=== PATIENT | female | born 1955 | race African-American/Black ===

== ENCOUNTER 2019-08-27 13:33 | Inpatient (IN) ==
[2019-08-27] MEDS ORDERED: NS 1,000 ML ONE (14:07)
[2019-08-27] MEDS ORDERED: VANCOMYCIN 1 GM/NS 1 GM/250 ML IVPB IV ONE (14:15)
[2019-08-27] MEDS ORDERED: NS 500 ML IV ONE (14:15)
[2019-08-27] MEDS ORDERED: NS 1,000 ML IV ONE ×3 (14:15→21:33)
[2019-08-27] MEDS ORDERED: ATROPINE SYRINGE ONE (14:24)
[2019-08-27] MEDS ORDERED: ATROPINE IV ONE (14:26)
[2019-08-27] MEDS ORDERED: ZOSYN 3.375 GM in NS 50 ML IV SCH (14:33)
[2019-08-27 14:42] LABS: INR 2.09; PTT 43.3 Seconds (22.3-41.8)
[2019-08-27 14:43] LABS: BASO# 0.11 X1000 (0.0-0.2); BASO% 0.5 % (0.0-0.8); EOS# 0.07 X1000 (0.0-0.7); EOS% 0.3 % (0.0-10.0); HEMATOCRIT 30.4 % (37.0-47.0); HEMOGLOBIN 8.2 g/dL (12.0-16.0); IMM GRAN# 1.99 X1000 (0.0-0.04); IMM GRAN% 8.6 % (0.0-0.5); LYMPH# 5.21 X1000 (1.2-3.4); LYMPH% 22.6 % (20.5-51.1); MCH 28.3 PG (27-31); MCV 104.8 FL (81-99); MONO# 2.62 X1000 (0.11-0.59); MONO% 11.4 % (1.7-9.3); MPV 11.3 FL (7.4-10.4); NEUT# 13.02 X1000 (1.4-6.5); NEUT% 56.6 % (42.2-75.2); PLT 475 X1000 (130-400); RDW 14.1 % (11.5-14.5); WBC 23.02 X1000 (4.8-10.8)
[2019-08-27] MEDS: LEVOPHED 8 MG in D5 1/2 NS 250 ML IV SCH ×2 (14:44→19:58)
[2019-08-27] MEDS ORDERED: ATROPINE SYRINGE IV ONE ×2 (14:45→19:00)
[2019-08-27 14:59] LABS: URINE SOURCE CATH
[2019-08-27] MEDS ORDERED: SODIUM BICARBONATE 8.4% IV PUSH ONE (15:02)
[2019-08-27] MEDS ORDERED: KAYEXALATE PR ONE (15:02)
[2019-08-27] MEDS ORDERED: D50W SYRINGE IV ONE (15:04)
[2019-08-27 15:05] LABS: AGAP 34; ALB/GLOB RATIO 1.3; ALBUMIN 3.7 g/dL (3.5-5.0); ALKALINE PHOSPHATASE 69 U/L (32-104); BUN 77 mg/dL (8-22); CALCIUM 10.4 mg/dL (8.8-10.2); CHLORIDE 101 mmol/L (98-107); CK PROFILE 62 U/L (24-173); COSMO 302; CREATININE 5.1 mg/dL (0.5-0.9); ESTIMATED GFR 10; GLUCOSE 199 mg/dL (70-104); GOT 17 U/L (10-30); GPT 10 U/L (10-36); POTASSIUM 7.6 mmol/L (3.5-5.1); SODIUM 137 mmol/L (136-145); TCO2 2 mmol/L (25-35); TOTAL BILIRUBIN < 0.15 mg/dL (0.20-1.00); TOTAL PROTEIN 6.5 g/dL (6.3-8.3)
[2019-08-27] MEDS ORDERED: HUMULIN R IV ONE (15:06)
[2019-08-27 15:19] LABS: BILIRUBIN URINE NEGATIVE (NEGATIVE); BLOOD URINE SMALL (NEGATIVE); COLOR RED; GLUCOSE URINE 100 mg/dL (NEGATIVE); KETONE URINE TRACE mg/dL (NEGATIVE); LEUKOCYTES URINE MODERATE (NEGATIVE); NITRITE URINE POSITIVE (NEGATIVE); PH URINE 5.5; PROTEIN URINE 30 mg/dL (NEGATIVE); SP GRAVITY URINE 1.033; TURBIDITY URINE TURBID (CLEAR); UROBILINOGEN URINE NORMAL (NORMAL)
[2019-08-27 15:28] LABS: UR EPITHELIAL CELLS >10 /HPF (<10); URINE BACTERIA NEGATIVE /HPF; URINE RBC TNTC /HPF (<10); URINE WBC TNTC /HPF (<10)
[2019-08-27] MEDS ORDERED: SODIUM BICARBONATE 8.4% 150 MEQ in STERILE WATER INJ. 1,000 ML IV SCH (15:30)
--- NOTE | 2019-08-27 15:37 | Diag Imaging Result Doc PS360 ---
EXAM: CHEST-1 VIEW HISTORY: AMS TECHNIQUE: Single view COMPARISON: None. FINDINGS: The lungs are well expanded. The heart is not enlarged. The vessels are not distended. There are basilar infiltrates. No effusion identified. IMPRESSION: Basilar infiltrates Electronically signed by Dhruv Butler 08/27/2019 3:34 PM
[2019-08-27 15:40] LABS: URINE CASTS NONE SEEN; URINE CRYSTALS NONE SEEN; URINE SMALL ROUND CELLS TRANS PRESENT; URINE YEAST NONE SEEN
[2019-08-27] MEDS ORDERED: DOPAMINE 400 MG/D5W 400 MG/500 ML IV.SOLN IV SCH (16:15)
--- NOTE | 2019-08-27 16:33 | Diag Imaging Result Doc PS360 ---
EXAM: CT HEAD W/O CONTRAST HISTORY: AMS TECHNIQUE: CT head without contrast COMPARISON: None. FINDINGS: No parenchymal hemorrhage. No epidural or subdural hematoma. No subarachnoid hemorrhage. Mild atrophy. Chronic microvascular ischemic changes. No mass identified on this noncontrasted exam. No hydrocephalus. No sinus opacification. IMPRESSION: 1.No hemorrhage 2.Mild atrophy 3.Chronic microvascular ischemic changes This exam was performed using automated exposure control, adjustment of mA or kV according to patient size, and/or use of iterative reconstruction technique. Electronically signed by Dhruv Butler 08/27/2019 4:31 PM
--- NOTE | 2019-08-27 17:05 | PROVIDER DOCUMENTATION ---
HPI-Fever - General Chief Complaint: Altered Mental Status Stated Complaint: EMS/LETHARGIC Time Seen by Provider: 08/27/19 13:57 Source: EMS notes reviewed Allergies/Adverse Reactions: Patient Allergies Allergy/AdvReac Type Severity Reaction Status Date / Time latex Allergy Unknown Verified 08/27/19 14:33 Sulfa (Sulfonamide Allergy Unknown Verified 08/27/19 14:33 Antibiotics) Home Medications: Home Medication List Medication Instructions Recorded Confirmed Last Taken Type Amlodipine Besylate [Norvasc] 10 mg PO DAILY 08/27/19 08/27/19 08/26/19 09:00 History 10 mg Clopidogrel Bisulfate [Clopidogrel] 75 mg PO DAILY 08/27/19 08/27/19 08/26/19 09:00 History 75 mg Hydralazine HCl 100 mg PO Q8HR 08/27/19 08/27/19 08/27/19 06:00 History 100 mg Insulin Detemir [Levemir] 10 unit SQ QAM 08/27/19 08/27/19 08/27/19 06:00 Histor y 10 units Metformin HCl 1,000 mg PO BID 08/27/19 08/27/19 08/26/19 21:00 History 1000 mg Metoprolol Tartrate 50 mg PO BID 08/27/19 08/27/19 08/26/19 21:00 History 50 mg Multivitamin [Multi-Vitamin Daily] 1 tab PO DAILY 08/27/19 08/27/19 08/26/19 09:00 History 1 tab Pantoprazole Sodium [Protonix] 40 mg PO QHS 08/27/19 08/27/19 08/26/19 21:00 History 40 mg Pravastatin Sodium 40 mg PO DAILY 08/27/19 08/27/19 08/26/19 09:00 History 40 mg - History of Present Illness-Fever Nature of Presenting Problem: Patient is a known diabetic, brought from [facility] by EMS for lethargy with altered mental status. Duration unknown. She was given D50 and IVF 500mls enroute to ED where she continued to be minimally responsive and information could not be obtained from her. Information obrtained from EMS Onset/Duration: reports: unsure Timing: reports: still present Context: reports: decreased mental status Recent Illness?: reports: other (unknown) Modifying Factors: improves with: nothing Associated Symptoms: reports: fatigue, other (hypotension) - Glascow Coma Score Best Eye Response (Bonner): (2) open to pain Best Verbal Response (Bonner): (1) no verbal response Best Motor Response (Candace): (6) obeys commands Review of Systems - Adult - REVIEW OF SYSTEMS - ADULT ROS:: unobtainable per condition Constitutional: reports: see HPI Past History - Adult - PAST MEDICAL HISTORY-ADULT Review of Records: reports: Nursing Assessment Review, Medications Reviewed, Social history reviewed & non-contributory. Cardiovascular: reports: cardiac disease, HTN Respiratory: reports: denies history Gastrointestinal: reports: denies history Diabetes Type: Type 2 - FAMILY HISTORY Family History: other (unable to obatin due to pt condition) - SOCIAL HISTORY Smoking: other (unable to obain) Physical Exam-General - CONSTITUTIONAL General Appearance: appears well, obtunded - EYES Eyes: PERRL/EOMI - HEAD, EARS, NOSE, MOUTH & THROAT HENMT: normocephalic/atraumatic - NECK Neck: other (no thyroid enlargement) - RESPIRATORY Respiratory: chest non-tender, normal breath sounds - CARDIOVASCULAR Cardiovascular: bradycardia - GASTROINTESTINAL (ABDOMEN) Abdominal Exam: soft, no organomegaly - MUSCULOSKELETAL Back Exam: other (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) - SKIN Integumentary: other (cold , clammy extremities) - NEUROLOGIC Neurologic: other (u) - PSYCHIATRIC Psych/Mental Status: other (depressed level of consciousness) Progress - PLAN OF CARE/RESULTS Progress/Plan/Lab Results: Orders Category Date Time Status Admit - [facility] Routine AdmDCTranf 08/27/19 19:22 Active Activity - Strict Bedrest ORDERED Care 08/27/19 19:22 Active Cardiac Monitoring DIRECTED Care 08/27/19 14:14 Active FSBS/Accucheck Result Q4H Care 08/27/19 19:19 Active Payne Cath Insertion ORDERED Care 08/27/19 14:15 Active IV Insertion ORDERED Care 08/27/19 14:14 Completed Intake and Output-Strict ORDERED Care 08/27/19 19:22 Active Notify MD of + Sepsis Screen NOW Care 08/27/19 14:14 Active Notify MD/PA/SUE for exam NOW Care 08/27/19 14:15 Active Notify Physician As Ordered Care 08/27/19 14:14 Active Nursing- MD Consult Request ROUTINE Care 08/27/19 18:03 Active Repeat Vital Signs .Blood Pressure Care 08/27/19 14:15 Completed Repeat Vital Signs .Heart Rate Care 08/27/19 14:15 Active Repeat Vital Signs .Oxygen Saturation Care 08/27/19 14:15 Active Repeat Vital Signs .Respiratory Rate Care 08/27/19 14:15 Active Repeat Vital Signs .Temp Care 08/27/19 14:15 Active Restraint Initiate NonViolent ONCE Care 08/27/19 15:33 Active Vital Signs Order Q1H Care 08/27/19 19:22 Active Z-Document. for Tele Applied ORDERED Care 08/27/19 19:23 Active Physician/Provider Consults Routine Cons 08/27/19 18:03 Ordered NPO Diet 08/27/19 19:23 Completed CHEST-1 VIEW [RAD] Stat Exams 08/27/19 14:[address] HEAD W/O CONTRAST [CT] Stat Exams 08/27/19 15:[address] THORAX/ABD/PELVIS W/O CON [CT] Stat Exams 08/27/19 18:05 Completed ABG [RESP] Routine Lab 08/27/19 18:52 Completed BLOOD CULTURE [BLDCUL] Stat Lab 08/27/19 14:15 Results CBC WITH DIFF [HEME] Stat Lab 08/27/19 14:07 Completed CK PROFILE [SP CHEM] Stat Lab 08/27/19 14:07 Completed CMP [COMPREHENSIVE METABOLIC PANEL] [CHEM] Stat Lab 08/27/19 17:47 Completed COMPREHENSIVE METABOLIC PANEL [CHEM] Stat Lab 08/27/19 14:07 Completed HEMATOCRIT [HEME] Stat Lab 08/27/19 17:47 Completed HEMOGLOBIN [HEME] Stat Lab 08/27/19 17:47 Completed LACTATE, PLASMA [CHEM] Lab 08/27/19 17:47 Completed LACTATE, PLASMA [CHEM] Lab 08/27/19 21:05 Completed LACTATE, PLASMA [CHEM] Q3H Lab 08/27/19 14:15 Completed PROTIME WITH INR [COAG] Stat Lab 08/27/19 14:07 Completed PTT [COAG] Stat Lab 08/27/19 14:07 Completed RETIC COUNT [HEME] Q4H Lab 08/27/19 21:05 Completed TROPONIN T Stat Lab 08/27/19 14:07 Completed URINALYSIS W/POSS RFLX CULT [URINALYSIS] Stat Lab 08/27/19 14:50 Completed URINE CULTURE [RM] Routine Lab 08/27/19 15:41 Results URINE MANUAL MICROSCOPIC [URINALYSIS] Stat Lab 08/27/19 14:50 Completed 0.9% Sodium Chloride Inj [Ns] 1,000 ml Med 08/27/19 14:07 Discontinued .ROUTE As directed 0.9% Sodium Chloride Inj [Ns] 1,000 ml Med 08/27/19 15:40 Discontinued IV 999 mls/hr 0.9% Sodium Chloride Inj [Ns] 1,000 ml Med 08/27/19 14:15 Discontinued IV As Directed mls/hr 0.9% Sodium Chloride Inj [Ns] 500 ml Med 08/27/19 14:15 Discontinued IV 999 mls/hr Albuterol 0.5% INH Conc [Albuterol 0.5% INH Conc For Med 08/27/19 18:04 Discontinued Hyperkalemia] 25 mg INH NOW ONE Atropine Med 08/27/19 14:26 Discontinued 1 mg IV NOW ONE Atropine Syringe Med 08/27/19 14:24 Discontinued 1 mg .ROUTE .STK-MED ONE Atropine Syringe Med 08/27/19 14:45 Discontinued 1 mg IV NOW ONE Calcium Gluconate 2 gm Med 08/27/19 18:22 Discontinued 0.9% Sodium Chloride Inj [Ns] 100 ml IV NOW CefEPIME [Maxipime] 1 gm Med 08/27/19 19:30 Discontinued 0.9% Sodium Chloride Inj [Ns] 50 ml IV Q12H Dextrose 5%-0.45% NaCl Inj [D5 1/2 Ns] 250 ml Med 08/27/19 14:15 Discontinued Norepinephrine [Levophed] 8 mg IV As Directed mls/hr Dextrose 50% Syringe [D50w Syringe] Med 08/27/19 15:04 Discontinued 50 ml IV NOW ONE Dopamine 400 mg/D5w Med 08/27/19 16:15 Discontinued 400 mg in 500 ml IV As Directed mls/hr Insulin Human Regular [Humulin R] Med 08/27/19 15:06 Discontinued 10 unit IV NOW ONE Insulin Lispro [Humalog] Med 08/27/19 21:00 Discontinued See Protocol SUBQ 0700,1100,1600,2100 Misc. Pharmacy Communication Med 08/27/19 19:30 Discontinued 1 each .SEE ORDER DIRECTED Pharmacy Order [Vancomycin IV Per Pharmacy] Med 08/27/19 19:30 Discontinued 1 each MISC DIRECTED Piperacillin/Tazobactam [Zosyn] 3.375 gm Med 08/27/19 14:33 Discontinued 0.9% Sodium Chloride Inj [Ns] 50 ml IV Q6H Sodium Bicarbonate 8.4% Med 08/27/19 15:02 Discontinued 50 meq IV PUSH NOW ONE Sodium Polystyrene [Kayexalate] Med 08/27/19 15:02 Discontinued 30 gm KS NOW ONE Vancomycin 1 gm/Ns Med 08/27/19 14:15 Discontinued 1 gm in 250 ml IV NOW Water, Sterile Inj [Sterile Water Inj] 1,000 ml Med 08/27/19 15:30 Discontinued Sodium Bicarbonate 8.4% 150 meq IV 200 mls/hr Aerosol Treatments Routine Oth 08/27/19 18:04 Completed Aerosol Treatments Stat Oth 08/27/19 18:04 Completed Oxygen Device Stat Oth 08/27/19 14:14 Completed Telemetry [OM.EQ] Routine Oth 08/27/19 19:22 Active EKG [EKG] Stat Ther 08/27/19 15:01 Draft Transfer/Admit Order [TRANSFER] Routine Transfer 08/27/19 19:28 Completed Result Diagrams: 08/27/19 17:47 08/27/19 17:47 - REASSESSMENT Reassessment #1 Time Reassessed: 14:30 Status: unchanged (Patient remains minimally responsive , hypothermic, bradycardic and hypotensive inspite of fluid ressucitation) Reassessment #2 Time Reassessed: 15:00 Status: improving (Patient groaning with eyes open, BP and pulse have responded minimally to pressors) Reassessment #3 Time Reassessed: 17:00 Status: unchanged (Patient on epi and dopamin drip, slight improvement in BP and pulse and has remained hypothermic inspite of the use of warm normal saline solution and litzy hugger. Her mental status has remained the same) - XRAY 1 XRAY Study: Chest ( EXAM: CHEST-1 VIEW HISTORY: AMS TECHNIQUE: Single view COMPARISON: None. FINDINGS: The lungs are well expanded. The heart is not enlarged. The vessels are not distended. There are basilar infiltrates. No effusion identified. IMPRESSION: Basilar infiltrates Electronically signed by Dhruv Butler 08/27/2019 3:34 PM) - CT/MRI 1 CT Study: Head ( EXAM: CT HEAD W/O CONTRAST HISTORY: AMS TECHNIQUE: CT he ad without contrast COMPARISON: None. FINDINGS: No parenchymal hemorrhage. No epidural or subdural hematoma. No subarachnoid hemorrhage. Mild atrophy. Chronic microvascular ischemic changes. No mass identified on this noncontrasted exam. No hydrocephalus. No sinus opacification. IMPRESSION: 1.No hemorrhage 2.Mild atrophy 3.Chronic microvascular ischemic changes This exam was performed using automated exposure control, adjustment of mA or kV according to patient size, and/or use of iterative reconstruction technique. Electronically signed by Dhruv Butler 08/27/2019 4:31 PM) - CONSULTS/PCP/HOSPITALIST Notification #1 *Consult/PCP/Hospitalist*: JN Sofia Time Discussed: 17:51 Consult Disposition: Admit (Paged hospitalist 2x. Per Dr Stratton, JN Sofia accepts admission for Hospitalist) Procedures - CENTRAL LINE Consent Form Signed?: Yes Time-Out Verification Completed?: Yes Central Line Lumen: triple Central Line Procedure Prep: Betadine Patient Position (To prevent Air Embolism): Trendelenburg (SC/IJ) Central Line Position: internal jugular (L) Ultrasound Guided?: Yes Hat, mask, sterile gown, & sterile gloves worn by physician?: Yes Site scrubbed vigorously for 30 seconds? (Groin: 2 min): Yes Anesthetic: 1%, Lidocaine/Xylocaine Post Procedure: Sutured in place Complications: none Procedure Comment: performed by DR Robertson. Supervised by Dr Basurto Departure - Departure Date of Disposition Decision: 08/27/19 Time of Disposition Decision: 17:52 DIAGNOSIS: Sepsis associated hypotension, Hyperkalemia AMS (altered mental status) Qualifiers: Altered mental status type: unspecified Qualified Code(s): R41.82 - Altered men dougie status, unspecified Pneumonia Qualifiers: Pneumonia type: due to unspecified organism Laterality: bilateral Lung location: lower lobe of lung Qualified Code(s): J18.1 - Lobar pneumonia, unspecified organism UTI (urinary tract infection) Qualifiers: Urinary tract infection type: site unspecified Hematuria presence: without hematuria Qualified Code(s): N39.0 - Urinary tract infection, site not specified Disposition: ADMITTED INPATIENT 09 Certified Medical Emergency: Emergent Condition: Fair - Critical Care Note This patient required my direct & personal management of CC.: Yes Total Time (mins): 50 Critical Care Statement: This patient required my direct personal management to treat or rule out processes, the absence of which, could potentiallly result in sudden, clinically significant life or limb threatening deterioration. Attestation - Physician/ TERESE Attestation Patient care was provided by Advanced Practice Provider:: No The physician spent face to face time with patient:: Yes Advanced Practice Provider documentation review:: Supervising physician onsite and consulted in the evaluation and care of this patient. The physician did have a face to face encounter with the patient.
--- NOTE | 2019-08-27 17:43 | SEPSIS: TISSUE PERFUSION ASSMT ---
Sepsis: Tissue Perfusion [facility] - Physical Exam Assessment Date: 08/27/19 Time Assessment Initialized: 17:38 Vital Signs: Last Vital Signs Temp 89.0 F L 08/27/19 14:17 Pulse 52 L 08/27/19 16:55 Resp 19 08/27/19 16:55 BP 90/42 08/27/19 16:55 Pulse Ox 82 L 08/27/19 16:35 Height 5 ft 5 in Weight 85 lb 08/27/19 17:40 BP 1150 MAP 51 RR 23 Temp. 87.3 Oxygen sat: 100% RA Lung Sounds:: lungs clear Heart Sounds:: Regular Capillary Refill Time: Greater Than 2 Seconds Peripheral Pulse Evaluation:: radial (R): 1+, radial (L): 1+, dorsalis-pedis (R): 1+, dorsalis-pedis (L): 1+ Skin Exam:: other (markedly decreased, cold, clammy) - Impression Impression:: Tissue Perfusion Inadequate - Plan Plan:: See Orders (Patient will be admitted)
[2019-08-27] MEDS ORDERED: ALBUTEROL 0.5% INH CONC FOR HYPERKALEMIA INH ONE (18:04)
[2019-08-27 18:07] LABS: HEMATOCRIT 28.9 % (37.0-47.0); HEMOGLOBIN 7.9 g/dL (12.0-16.0)
[2019-08-27] MEDS ORDERED: CALCIUM GLUCONATE 2 GM in NS 100 ML IV ONE (18:22)
[2019-08-27 18:23] LABS: AGAP 33; ALB/GLOB RATIO 1.2; ALKALINE PHOSPHATASE 62 U/L (32-104); BUN 68 mg/dL (8-22); CALCIUM 8.3 mg/dL (8.8-10.2); CHLORIDE 106 mmol/L (98-107); COSMO 313; CREATININE 4.7 mg/dL (0.5-0.9); ESTIMATED GFR 11; GLUCOSE 319 mg/dL (70-104); GOT 18 U/L (10-30); GPT 9 U/L (10-36); POTASSIUM 5.2 mmol/L (3.5-5.1); SODIUM 141 mmol/L (136-145); TCO2 2 mmol/L (25-35); TOTAL BILIRUBIN < 0.15 mg/dL (0.20-1.00); TOTAL PROTEIN 5.6 g/dL (6.3-8.3)
--- NOTE | 2019-08-27 18:25 | EKG Report ---
Test Performed on : 08/27/2019 3:50:12 PM Test Reason : REPEAT Blood Pressure : / mmHG Vent. Rate : 054 BPM Atrial Rate : 054 BPM P-R Int : 136 ms QRS Dur : 100 ms QT Int : 546 ms P-R-T Axes : 073 018 061 degrees QTc Int : 517 ms Sinus bradycardia. Prolonged QT Abnormal ECG When compared with ECG of 27-AUG-2019 14:07, (Unconfirmed) No significant change was found Unconfirmed Result
[2019-08-27] MEDS ORDERED: EPINEPHRINE SYRINGE IV ONE (19:00)
[2019-08-27] MEDS ORDERED: SODIUM BICARBONATE 8.4% IV ONE (19:00)
[2019-08-27 19:01] LABS: ALLEN TEST YES; BLOOD TYPE ARTERIAL; METHB 0.8 % (0.0-1.5); O2(CT) 10.9 mL/dL (15.0-23.0); O2HB 92.1 % (95.0-99.0); PO2(98.6) 75 mmHg (60-100); SAMPLE BLOOD; SAO2 95.5 % (95.0-100.0); THB 8.3 g/dL (11.5-17.4)
[2019-08-27 19:02] LABS: MODALITY ROOM AIR
--- NOTE | 2019-08-27 19:02 | HISTORY AND PHYSICAL ---
ADDENDUM: Ms. Pradhan is a 63-year-old female who I understand is a resident of halfway ([facility]). There is no family member at her bedside to give me any history. Per the nursing staff, Ms. Pradhan was brought in because of altered mental status. Upon presentation to the emergency department, Ms. Pradhan was found to be remarkably hypotensive with initial vitals of blood pressure 71/53, pulse of 52, respirations were 18, had a temperature of 89. She has been fluid resuscitated, and we have been consulted for admission. On my exams, Ms. Pradhan is a 63- year-old female. She was in bed. She was not in any cardiopulmonary distress; however, she seemed very uncomfortable. She was not very focalizing. She seemed very confused and stuporous, would barely say a few words upon painful stimulation. She looks remarkably dry. 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 On her neurological exams, eyes are open, but they are no focalizing. She does not seem to have threat response. She will mumble and groan a few words, noncomprehensive. She barely withdraws to painful stimulation. Laboratory data has also been reviewed. She has microcytic anemia with leukocytosis. Her potassium level was 7.6, a bicarb was 2. There was no ABG done at the time of the dictation. Her gap was 34 with a BUN of 77 and creatinine of 5.1. Patient has a baseline creatinine of 1.0 to 1.2 [place] of this year. The urine has a specific gravity of 1.033, very concentrated, has positive nitrates. There are a lot of WBCs and RBCs. Crystals were absent. Her initial chest x-ray shows basilar infiltrates. A CT scan of the head shows no hemorrhage, mild atrophy, chronic microvascular changes. ASSESSMENT: 1. Shock presumably septic, suspected to be from pneumonia; however, I think an intraabdominal pathology will also need to be ruled out. We will have to get a CT scan of the chest, abdomen, and pelvis. Unfortunately, we cannot use contrast because of her remarkably abnormal renal function test. 2. Acute kidney injury. The patient's creatinine is at 5.1. We are going to continue with the hydration. We will put in a stat consult to Nephrology. I have discussed personally with Dr. Klein on the phone 3. Severe high anion gap metabolic acidosis with metabolic alkalosis. We are pending the ABG to see if there is an adequate compensation from respiratory standpoint. The patient is currently fluid resuscitated with about 3 L I am told. She is on IV bicarb drip. We will follow up with further recommendations from Nephrology. 4. Severe clinical volume depletion. We will continue with the plan outlined above. 5. Severe hyperkalemia with a potassium of 7.6. The patient has been treated, and we are going to repeat this to see if there is any improvement. I am yet to see an EKG for her. She is bradycardic. Calcium gluconate has been given. 6. Severe lactic acidosis most likely from septic shock (hypoperfusion to the muscular tissues). We will continue to follow this up after the fluid challenge. 7. Altered mental status. Initial CT scan of the head did not show any acute hemorrhage. I think this is most likely due to encephalopathy as a result of sepsis and metabolic derangements. Please refer to the details of the history and physical that has been dictated by the FILM AND VIDEO GRAPHICS DESIGNER in the chart. cc: Pipo Salguero MD Critical time spent 45 minutes. ANN-MARIE
[2019-08-27 19:05] LABS: PCO2(98.6) 17 mmHg (35-45); pH(98.6) < 6.80 (7.35-7.45)
[2019-08-27] MEDS ORDERED: VANCOMYCIN IV PER PHARMACY MISC SCH (19:30)
[2019-08-27] MEDS ORDERED: MAXIPIME 1 GM in NS 50 ML IV SCH (19:30)
[2019-08-27] MEDS ORDERED: MISC. PHARMACY COMMUNICATION SCH (19:30)
--- NOTE | 2019-08-27 20:04 | HISTORY AND PHYSICAL ---
CHIEF COMPLAINT: Unresponsive, hypoglycemic. HISTORY OF PRESENT ILLNESS: Miss Pradhan is a 63-year-old female who is a resident of [facility]. She is altered and unable to participate in any interview at this time, so my information is taken from her son as well as the nursing staff in the emergency room. Apparently, this morning Miss Pradhan was found to "not look right." They checked her blood sugar. It was 58. She was given some glucose tablets along with some sugary drinks and 4 hours later her blood sugar check was 254. During this time she was noted to be unresponsive. Therefore, 911 was called. On arrival to the emergency room the patient was lethargic, very slow to answer. Miss Pradhan was hypotensive having blood pressures in the 60s and 70s and heart rates that went between 35 and 45 with a core temp of 89 degrees rectal. She has been resuscitated with IV fluids per the emergency room physician given she is on norepinephrine as well as dopamine, and at present blood pressures are ranging from 99 to 106 systolic. Heart rates are in the 60s at this time. She has being given warm fluids as well as been placed on a Freya Hugger and core temp remains 88 degrees and 89 degrees. Miss Pradhan' son reports her being in her normal state Friday. He said she normally is very awake and alert and very chatty with people. He states that she had a good appetite and ate well when he was with her Friday. He is unaware of any change in status from Friday up until she was found this morning. PAST MEDICAL HISTORY: Per the chart: 1. Bradycardia. 2. CVA. 3. Diabetes mellitus. 4. Hypertension. PAST SURGICAL HISTORY: Toe amputation. SOCIAL HISTORY: No alcohol, tobacco, or illicit drug use. ALLERGIES: 1. LATEX. 2. SULFA. HOME MEDICATIONS: A list will be obtained by the nursing staff. Once verified, we will review and restart as appropriate. REVIEW OF SYSTEMS: Unable to obtain. PHYSICAL EXAMINATION: GENERAL: This is a 63-year-old female who is lying on the stretcher in the emergency room in no distress. VITAL SIGNS: Blood pressure is 102/42 with a heart rate of 64, respirations are 20, temperature is 88 degrees per Payne probe with saturations 95% to 98% on supplemental oxygen. EYES: Pupils are 3 on the right, 2 on the left. They are very sluggish to react. HEENT: Head is normocephalic, atraumatic. Mucous membranes are dry. NECK: Supple with trachea midline. CARDIOVASCULAR: Regular rate and rhythm. S1 and S2 appreciated. She has no lower extremity edema. Peripheral pulses are palpable. No murmur. PULMONARY: Breath sounds with wheezes and crackles scattered throughout. Chest rises and falls symmetric to respiration. GASTROINTESTINAL: Abdomen is soft and nondistended with bowel sounds in all 4 quadrants. GENITOURINARY: The patient is noted to have blood at her labia. NEUROLOGIC: She is confused, stuporous. She does mumble to painful stimulation although it is incomprehensible. She barely withdraws to painful stimulation to her right arm. She does grimace to painful stimulation to her sternum. She does not withdraw with painful stimulation to bilateral lower extremities or left arm at this time. LABORATORIES: WBC is 2302 with a hemoglobin 8.2, hematocrit 30.4, and platelets of 475,000. INR is 2. Sodium is 137, potassium 7.6, BUN 77, creatinine 5.1 with a glucose of 199. Troponin is 0.48 with a plasma lactate of 17.6. Urinalysis: Urine is red, nitrite positive with too numerous to count microscopic red blood cells and white blood cells, greater than 10 epithelial cells. Urine culture and blood cultures are pending. STUDIES: Chest x-ray reveals basilar infiltrates bilateral. CT of the head: No hemorrhage, mild atrophy, chronic microvascular ischemic changes. ASSESSMENT AND PLAN: 1. Septic shock. 2. Acute kidney injury. 3. Hyperkalemia. 4. Bilateral pneumonia. 5. Urinary tract infection. 6. Altered mental status. 7. Diabetes mellitus with hyperglycemia. PLAN: The patient will be admitted to ICU, placed on telemetry. neuro checks. IV hydration. trend renal profile and treat electrolytes accordingly. Antibiotics: Vancomycin dosed per pharmacy and Zosyn. Payne catheter. Strict I&O. continue pressors q. 4 hour blood sugars and treat with sliding scale insulin. consult Dr. Klein in Nephrology. The patient was examined with Dr. Salguero and Plan was discussed. Further treatments pending hospital course. Dictated by SUE Briceno for Pipo Salguero MD cc: SUE Briceno MD MTDD
[2019-08-27 20:35] VITALS: BP 107/45
[2019-08-27] MEDS ORDERED: HUMALOG SUBQ SCH (21:00)
[2019-08-27 21:15] LABS: RETIC% 2.91 % (0.8-2.1); RETIC-HE 32.4 PG (28.2-36.6)
[2019-08-27] MEDS ORDERED: NORCURON ONE (22:22)
[2019-08-27] MEDS ORDERED: PITRESSIN 40 UNIT in NS 100 ML IV SCH (22:45)
[2019-08-27] MEDS ORDERED: EPINEPHRINE 4 MG in NS 250 ML IV SCH (23:00)
[2019-08-27] MEDS ORDERED: CORDARONE 150 MG/D5W 150 MG/100 ML IV.SOLN ONE (23:07)
[2019-08-27] MEDS ORDERED: CORDARONE 360 MG/D5W 360 MG/200 ML IV.SOLN ONE (23:07)
[2019-08-28] MEDS ORDERED: EPINEPHRINE SYRINGE ONE (01:00)
[2019-08-28] MEDS ORDERED: CORDARONE ONE (01:00)
[2019-08-28] MEDS ORDERED: SODIUM BICARBONATE 8.4% ONE (01:00)
--- NOTE | 2019-08-28 08:49 | Diag Imaging Result Doc PS360 ---
EXAM: CT HEAD W/O CONTRAST - 08/27/2019 HISTORY: change in mental status TECHNIQUE: CT head without contrast COMPARISON: 08/27/2019 FINDINGS: There are atrophic changes and chronic microvascular ischemic changes similar to prior. There is no indication of recent infarct, although acute infarcts may not be immediately visible. There is no evidence of intracranial hemorrhage, mass effect, or midline shift. There is no evidence of skull fracture. There is mild paranasal sinus disease at the sphenoid sinus, similar to prior. IMPRESSION: No visible acute intracranial abnormality. No hemorrhage or mass effect. There is mild paranasal sinus disease at the sphenoid sinus similar to prior. The on-call radiologist provided preliminary results at 10:56 PM on 08/27/2019. This exam was performed using automated exposure control, adjustment of mA or kV according to patient size, and/or use of iterative reconstruction technique. Electronically signed by Hugo Peterson 08/28/2019 8:47 AM
--- NOTE | 2019-08-28 09:07 | Diag Imaging Result Doc PS360 ---
EXAM: CT THORAX/ABD/PELVIS W/O CON - 08/27/2019 HISTORY: sepsis un known etiology TECHNIQUE: CT thorax and abdomen/pelvis without contrast. No contrast administered per request of the referring provider. COMPARISON: None. FINDINGS: CT thorax: There is extensive consolidation at the bilateral lower lobes. There is some consolidation in the bilateral posterior upper lobes. These are suspicious for pneumonia. Aspiration may be a consideration. The possibility of pulmonary hemorrhage cannot be entirely excluded. There is apparent debris or retained secretions in the left mainstem bronchus. The proximal esophagus is mildly distended with air. There are possibly small bilateral pleural effusions. There is no pneumothorax. CT abdomen/pelvis: There is some limitation of detail without administered contrast. The stomach is moderately distended with fluid and air. Otherwise, there is no evidence of bowel obstruction. There is no discrete substantial bowel wall thickening identified. There is no free air, substantial free fluid, or abscess identified. There are no substantial abnormalities of the liver, spleen, adrenal glands, or pancreas identified. The gallbladder is not well-visualized due to technical factors. There are no calcified gallstones identified. There is no renal stone or hydronephrosis identified. The urinary bladder is decompressed by Payne catheter. The urinary bladder ventura appear diffusely thickened. There is soft tissue fullness at the right posterior pelvis which presumably relates to retroverted uterus. IMPRESSION: CT thorax: Extensive consolidation at bilateral lower lobes. Some consolidation at bilateral posterior upper lobes. These are suspicious for pneumonia. Aspiration may be a consideration. Apparent debris or retained secretions in left mainstem bronchus. Mild distention of proximal esophagus with air. CT abdomen/pelvis: Moderate distention of stomach with fluid and air. No evidence of bowel obstruction otherwise. No discrete bowel inflammation. No abscess. No free air. Apparent diffuse thickening of urinary bladder ventura. The possibility of cystitis or mass cannot be excluded. No hydronephrosis. The on-call radiologist provided preliminary results at 10:49 PM on 08/27/2019. This exam was performed using automated exposure control, adjustment of mA or kV according to patient size, and/or use of iterative reconstruction technique. Electronically signed by Hugo Peterson 08/28/2019 9:05 AM
--- NOTE | 2019-08-28 10:55 | PROGRESS NOTE ---
DATE AND TIME: 08/28/2019 at 0115. Late Entry Critical Care Progress Note. Ms. Pradhan was a 63-year-old female, who was admitted earlier in the evening by Dr. Salguero. She came in and was presumably believed to be in septic shock. She was suspected to have pneumonia, as well as a urinary tract infection. She also did have an acute kidney injury with severe high anion gap metabolic acidosis with metabolic alkalosis, severe clinical volume depletion, severe hyperkalemia and severe lactic acidosis, most likely from septic shock. She did have some altered mental status as well, for which they have performed a CT of the head which did not show any acute abnormalities. The patient did receive IV hydration. She was placed on a sodium bicarbonate drip as well. They had treated her potassium and had since rechecked her electrolytes, and her potassium had improved from 7.6 to 5.2. From what I understand, according to the previous care notes in the patient's chart, she had episodes of bradycardia and hypotension previously as well. She was given atropine earlier and had been placed on a dopamine and Levophed drip. There was concern for possible further intra-abdominal pathology. She did have a CT of chest, abdomen and pelvis that was ordered. They did take the patient to CT and then, from what I understand, while in the Radiology Department receiving her CT study, she did become bradycardic and did ultimately lose a pulse. CPR was started. ACLS protocol was initiated. They did return the patient to the ER. She did have return of spontaneous circulation. From what I understand, the patient was also intubated by the ER physician at this time as well. Shortly after intubation the patient did have loss of pulse again and was asystole on the monitor. CPR was started and ACLS protocol was initiated. After being given CPR and medications of epinephrine and sodium bicarbonate the patient did have return of spontaneous circulation. Dr. Okeefe, the attending physician for the Hospitalist Service, was notified. He did come to the patient's bedside in the ER for re-evaluation. Dr. Okeefe did add on orders for epinephrine drip and vasopressin drip as well. The patient was then transported to ICU bed 16. According to ICU notes, the patient did arrive to the ICU at approximately 2243 hours. At the time of transferring the patient from the ER stretcher to the inpatient ICU bed, she did begin to have bradycardia again and did have loss of pulse. CPR was started. Kit Mac was called. ACLS protocol was initiated. During this code, the patient did have rhythms of ventricular tachycardia, as well as ventricular fibrillation for which she was defibrillated. She also had rhythm of PEA and ultimately asystole. We did give emergency cardiac medications of epinephrine, sodium bicarbonate, and amiodarone. Dr. Okeefe did speak with the patient's brother, Tray Pradhan, on the phone and did update him on the patient's status and that she had lost a pulse twice now. He did report to Dr. Okeefe that he did not want her to suffer anymore. He did not want us to continue resuscitative measures. Despite all resuscitative efforts, the patient did succumb to her illness. Dr. Okeefe did order for all resuscitative measures to be ended at 2310 hours, and time of was called at [address] Okeefe. The patient had no palpable pulse, no auscultated heart sounds, and no spontaneous respiratory effort and was asystole on the bedside monitor. Please see nurses notes and kit blue documentations for further detailed information. Dictated by SUE Scott for Wilfrido Okeefe MD cc: Wilfrido Okeefe MD [facility]
--- NOTE | 2019-08-28 18:04 | DISCHARGE SUMMARY ---
ADMISSION DATE: 08/27/2019 DISCHARGE DATE: 08/27/2019 SUMMARY CONSULTATIONS DURING THIS ADMISSION: Nephrology was consulted, and I had a discussion on the phone with Dr. Klein. INVASIVE PROCEDURES DONE DURING THIS ADMISSION: None. IMAGING STUDIES OF SIGNIFICANCE: 1-A chest x-ray on admission did show basilar infiltrates. 2-A head CT scan showed no hemorrhage, mild atrophy, and chronic microvascular ischemic changes. 3- A CT scan of the chest, abdomen and pelvis did show extensive consolidation at the bilateral lower lobes and some consolidation at the bilateral posterior upper lobes. These were suspicious for pneumonia. Aspiration may be a consideration. There was debris or retained secretion in the left main bronchus. Mild distention of the proximal esophagus with air. There is also a CT of the abdomen which showed moderate distention of the stomach with fluid and air. No evidence of bowel obstruction otherwise. The pelvis did show did show diffuse thickening of the urinary bladder wall. The possibility of cystitis or mass cannot be excluded. There was no hydronephrosis. A repeat head CT scan showed no visible acute intracranial pathology. DIAGNOSES AT THE TIME OF ADMISSION: 1. Septic shock. 2. Acute kidney injury. 3. Hyperkalemia. 4. Diabetes with hyperglycemia. 5. Altered mental status. DIAGNOSES AT THE TIME OF : 1. Septic shock from extensive bilateral pneumonias. 2. Acute hypoxemic respiratory failure secondary to extensive bilateral pneumonias. 3. Suspected aspiration pneumonias. 4. Acute kidney injury. 5. Severe dxoh-guokg-dda metabolic acidosis secondary to severe lactic acidosis. 6. Clinical volume depletion. 7. Altered mental status secondary to global encephalopathy, most likely sepsis and metabolic derangements. 8. Severe hyperkalemia with presenting potassium of 7.6. PRESENTING COMPLAINT: Unresponsive, hypoglycemia. HISTORY/HOSPITAL COURSE: Ms. Pradhan was a 63-year-old female who is resident of [facility] who presented to the emergency department apparently because she was not looking well. She was found to have a glucose level of about 58. Recheck later showed it was 354. The patient was unresponsive even after the glucose had normalized. She was brought to the emergency room, where she was evaluated. Upon presenting to the emergency room, Ms. Pradhan' initial vitals revealed a pulse of 44 and a blood pressure of 71/37. She was found to be remarkably sick, septic with multiple complications. She was evaluated immediately. About 3 L of fluid was used for resuscitation purposes. Blood cultures and urine cultures were all done. When the labs came back, it was found that her potassium was about 7.6. We thought that could also cause some of the EKG changes (sinus bradycardia). This was treated aggressively with calcium gluconate, D5 and insulin and bicarb. The patient's chemistry came back and revealed her bicarb was 2 with a creatinine of 5.1. She was started on a bicarb drip, and I personally reached out to Dr. Klein. Spoke multiple times with him on Ms. Pradhan. He recommended to continue doing what we were doing, and he also called me back to notify me that the repeat potassium was 5.2, so we should continue with the bicarb drip resuscitation and antibiotics. When I got to evaluate Ms. Pradhan, her initial chest x-ray was not very convincing for the level of the clinical picture that we were looking at, and with a high lactate, I was concerned if she did have any extensive pneumonia or an ischemic gut. Unfortunately, we could not do a CT scan with contrast because of the renal failure, so I did order a CT scan of the chest, abdomen, and pelvis. I understand when Ms. Pradhan was sent to do the CT scan, she coded on the CT scan table. BLS and ACLS protocols were all instituted, and they were able to obtain return of spontaneous circulation. The patient was sent to the ER and was intubated and sent to the ICU. I understand that in the ICU when she got changed from the ER bed to the ICU inpatient bed, she estelle'd down again and coded, and they had to resuscitate. At that point, per the notes, Dr. Okeefe, who was the hospitalist associate professor of communication last night, reached out to Ms. Pradhan' brother (Tray Pradhan) on the phone, and he is the [employer], and he recommended not to do any more resuscitation. So, despite all the resuscitative efforts, Ms. Pradhan eventually succumbed to her illness. She was subsequently pronounced at 23:11 on 08/27/2019. Family members were notified. cc: Pipo Salguero MD [facility]
--- NOTE | 2019-08-30 08:39 | EKG Report ---
Test Performed on : 08/27/2019 2:07:52 PM Test Reason : ED. NO EKG ORDER FOR MUSE Blood Pressure : / mmHG Vent. Rate : 041 BPM Atrial Rate : 041 BPM P-R Int : 144 ms QRS Dur : 098 ms QT Int : 622 ms P-R-T Axes : 078 030 039 degrees QTc Int : 513 ms Marked sinus bradycardia. Prolonged QT Abnormal ECG No previous ECGs available Unconfirmed Result
== END 2019-08-28 02:15 | disposition expired | DRG 871 ==
LOC: ED 13:33 → ICU 20:52
PROVIDERS: ATTEND Internal Medicine